=== PATIENT | male | born 1965 | race Caucasian/White ===

== ENCOUNTER → 2024-10-07 | Outpatient (CLI) | payer MEDICAID, SELFPAY ==
--- NOTE | 2024-10-07 | XR_ITS ---
Examination: Sacroiliac joints 3 views TECHNIQUE: AP OLIVAS BHARATHI sacroiliac joints 3 views Exam date and time: October 07, 2024 0858 hours INDICATIONS: Sacral pain 2 years FINDINGS: Old deformity right iliac crest Mild sclerosis about the SI joints Mild bilateral hip osteoarthritis No fracture IMPRESSION: Mild sacroiliitis
--- NOTE | 2024-10-07 | XR_ITS ---
Examination: Lumbar spine, 5 views Technique: Lumbar spine AP, lateral, coned lateral lower lumbar spine, bilateral obliques 5 views Exam date and time: October 07, 2024 0837 hours INDICATIONS: Lower back pain beginning 3 years ago. FINDINGS: Mild diffuse facet arthropathy No lumbar fracture Mild lumbar spondylosis Mild disc narrowing posteriorly L5-S1 IMPRESSION: Mild disc narrowing posteriorly L5-S1
--- NOTE | 2024-10-07 | XR_ITS ---
Examination: Bilateral knees, standing AP single view Technique: Standing AP bilateral knees, standing AP single view Exam date and time: October 07, 2024 0837 hours INDICATIONS: Bilateral knee pain 2 years FINDINGS: Minimal narrowing medial joint spaces No fracture or dislocation Meniscus calcification IMPRESSION: Minimal narrowing medial joint space
--- NOTE | 2024-10-07 | XR_ITS ---
Examination: Bilateral hands, 6 views. Technique: AP, Oblique, Lateral each hand total 6 views Date and time of exam: October 07, 2024 at 0837 hours INDICATIONS: Bilateral hand pain 2 years. FINDINGS: Mild juxta-articular bone demineralization Acute fracture or dislocation Old fracture left fifth metacarpal Bilateral mild osteoarthritis distal interphalangeal joints second through fifth digits and interphalangeal joint first digit No erosive arthritis Impression: Mild osteoarthritis as above
--- NOTE | 2024-10-07 | XR_ITS ---
Examination: AP pelvis 2 views Technique one AP pelvis hips in neutral position, AP pelvis hips abduction position Exam date and time: October 07, 2024 0857 hours INDICATIONS: Hip pain 2 years FINDINGS: Mild bilateral hip osteoarthritis Healed right hip fracture Orthopedic screw traverses proximal femoral shaft Old bony deformity superior right iliac crest No acute pelvic fracture IMPRESSION: Mild bilateral hip osteoarthritis
--- NOTE | 2024-10-07 | XR_ITS ---
Examination: Bilateral wrists 6 views Technique one AP oblique lateral each wrist total 6 views Exam date and time: October 07, 2024 0912 hours INDICATIONS: Bilateral wrist pain years FINDINGS: Mild osteopenia Mild bilateral osteoarthritis radiocarpal and first carpometacarpal joints No erosive arthritis No avascular necrosis IMPRESSION: Mild osteoarthritis radiocarpal and first carpometacarpal joint
--- NOTE | 2024-10-07 | XR_ITS ---
Examination: Ankle Bilateral, 6 views Technique: AP oblique lateral each ankle total 6 views Exam date and time: October 07, 2024 at 0909 hours INDICATIONS: Bilateral ankle pain 2 years. FINDINGS: No fracture or dislocation involving either ankle Mild bilateral osteoarthritis tibiotalar joints Ossification in the right plantar fascia 8mm plantar 10 mm posterior right calcaneal spurs 10 mm posterior left calcaneal spur Impression: Mild bilateral osteoarthritis tibiotalar joints Calcaneal spurs as above No fracture or dislocation involving either ankle
== END | disposition home or self-care (01) ==
LOC: CDIM 07:08
PROVIDERS: PCP Nurse Practitioner
DX: M46.1 Sacroiliitis, not elsewhere classified (principal); M16.0 Bilateral primary osteoarthritis of hip; M48.07 Spinal stenosis, lumbosacral region; M25.862 Other specified joint disorders, left knee; M25.861 Other specified joint disorders, right knee; M19.072 Primary osteoarthritis, left ankle and foot; M19.071 Primary osteoarthritis, right ankle and foot; M77.32 Calcaneal spur, left foot; M77.31 Calcaneal spur, right foot; M19.042 Primary osteoarthritis, left hand; M19.041 Primary osteoarthritis, right hand; M19.032 Primary osteoarthritis, left wrist; M19.031 Primary osteoarthritis, right wrist
CPT/HCPCS: 72110; 72170; 72202; 73110; 73130; 73565; 73610

== ENCOUNTER → 2024-11-07 | Outpatient (CLI) | payer MEDICAID, SELFPAY ==
--- NOTE | 2024-11-07 09:54 | XR_ITS ---
Examination: Foot bilateral, 6 views Technique: AP, oblique, lateral views each foot total 6 views Date and time of exam: November 07, 2024 1012 hours INDICATIONS: Foot joint pain 9 years FINDINGS: Mild osteopenia Advanced osteoarthritis right first metatarsophalangeal joint Mild osteoarthritis left first metatarsophalangeal joint Right foot 8mm plantar 10 mm posterior bony calcaneal spurs Ossification in the plantar fascia Left foot 10 mm posterior bony calcaneal spur IMPRESSION: Advanced osteoarthritis right first metatarsophalangeal joint Bilateral calcaneal spurs as above
== END | disposition home or self-care (01) ==
LOC: CDIM 09:40
PROVIDERS: PCP Family Medicine; Referring Provider Family Medicine; Visit Provider Family Medicine
DX: M19.072 Primary osteoarthritis, left ankle and foot (principal); M19.071 Primary osteoarthritis, right ankle and foot; M77.32 Calcaneal spur, left foot; M77.31 Calcaneal spur, right foot
CPT/HCPCS: 73630

== ENCOUNTER → 2024-11-18 | Outpatient (CLI) | payer MEDICAID, SELFPAY ==
--- NOTE | 2024-11-18 10:30 | XR_ITS ---
Examination: Abdomen sonogram, complete Date and time of exam: November 18, 2024 1114 hours INDICATIONS: Right upper abdominal pain beginning several years ago. Technique: Multiple real-time grayscale transabdominal sonographic images of the abdomen have been obtained. Findings: Normal gallbladder Normal common bile duct 0.4 cm Pancreatic head 2.4 cm Aorta not enlarged Liver 15.7 cm fatty infiltration mildly irregular contour no focal liver lesions Normal hepatopedal portal venous flow Patent IVC Right kidney 12.7 x 6.1 x 5.2 cm cortex 2.3 cm Left kidney 13.5 x 5.4 x 5.0 cm renal cortex 1.9 cm Mild bilateral renal parenchymal scar formation Spleen 10.3 cm IMPRESSION: Normal gallbladder Liver normal size fatty liver primary hepatocellular disease Mild bilateral renal parenchymal scar formation, no hydronephrosis
--- NOTE | 2024-11-18 11:00 | XR_ITS ---
Examination: Retroperitoneal ultrasound, complete Technique: Multiple high resolution grayscale images of the retroperitoneum obtained, including kidneys and bladder. Exam date and time:November 18, 2024 1123 hours INDICATIONS: Lower back pain beginning several years ago, history kidney stones FINDINGS: Right kidney 13.0 x 6.7 x 6.4 cm cortex 2.0 cm 9 mm possible calculus although no significant shadowing Left kidney 13.1 x 5.2 x 5.3 cm cortex 1.9 cm Moderate renal parenchymal scar formation No hydronephrosis No bladder mass or bladder calculi Bladder prevoid volume 64 cc unable to void Prostate volume 30 cc no prostate nodules IMPRESSION: Possible 9 mm right renal calculus Moderate bilateral renal parenchymal scar formation No hydronephrosis
== END | disposition home or self-care (01) ==
LOC: CDIM 10:41
PROVIDERS: PCP Family Medicine; Referring Provider Nurse Practitioner; Visit Provider Nurse Practitioner
DX: K76.0 Fatty (change of) liver, not elsewhere classified (principal); N28.89 Other specified disorders of kidney and ureter
CPT/HCPCS: 76700; 76770

== ENCOUNTER 2025-04-27 07:43 | Emergency (ER) | payer MEDICAID, SELFPAY ==
[2025-04-27 07:45] VITALS: BMI 36.1
[2025-04-27 07:53] VITALS: BP 145/79; PULSE 87; RESP 18; TEMP 36.8; O2SAT 98
--- NOTE | 2025-04-27 07:57 | PD.EDDENTL ---
ED Dental RME/HPI General Chief complaint: Dental/Oral/Throat Stated complaint: 3 TEETH PULLED LAST MONDAY; SEVERE PAIN Time Seen by Provider: 04/27/25 07:45 Arrival date/time: 04/27/25 07:43 60-year-old male presents to the emergency department today stating that he had 3 teeth pulled last Monday and is having pain he reports that his doctor was supposed to send Tylenol with codeine but he was unable to get the prescription as he reports the prescription did not go through. Patient requesting a shot of Toradol here and a prescription for pain medication Limitations: no limitations Related Data Home Medications ?Medication ?Instructions ?Recorded ?Confirmed tamsulosin 0.4 mg capsule (Flomax) 0.4 mg PO QDAY ##0 05/05/15 06/26/24 lisinopril 10 mg tablet 10 mg PO QDAY 10/24/19 06/26/24 Previous Rx's ?Medication ?Instructions ?Recorded acetaminophen 300 mg-codeine 30 mg 1 tab PO Q6H PRN pain #14 tabs 12/21/19 tablet (Tylenol-Codeine #3) cephalexin 500 mg capsule 500 mg PO Q8H #10 caps 06/30/24 hydrocodone 5 mg-acetaminophen 325 1 tab PO Q6H PRN pain #10 tabs 07/17/24 mg tablet hydrocodone 5 mg-acetaminophen 325 1 tab PO Q6H PRN pain #10 tabs 07/17/24 mg tablet hydrocodone 5 mg-acetaminophen 325 1 tab PO BID PRN pain #14 tabs 04/27/25 mg tablet Allergies Allergy/AdvReac Type Severity Reaction Status Date / Time ciprofloxacin (From Cipro) Allergy Severe Swelling Verified 04/27/25 07:48 of Lip/Tongue/Throat levofloxacin (From Levaquin) Allergy Severe Swelling Verified 04/27/25 07:48 of Lip/Tongue/Throat Penicillins Allergy Severe heart Verified 04/27/25 07:48 problems ibuprofen AdvReac Severe dysuria Verified 04/27/25 07:48 Review of Systems Review of Systems Systems Reviewed: All systems reviewed, normal except as documented Constitutional Constitutional: Reports system reviewed and no additional complaints, except as documented, Denies fever(s) and Denies headache(s) Eyes Eyes: Reports system reviewed and no additional complaints, except as documented and Denies blurry vision ENT Ears, Nose, Mouth, and Throat: Reports system reviewed and no additional complaints, except as documented, Reports dental pain, Denies headache(s), Denies nasal congestion and Denies nasal discharge Cardiovascular Cardiovascular: Reports system reviewed and no additional complaints, except as documented, Denies chest pain and Denies dyspnea Respiratory Respiratory: Reports system reviewed and no additional complaints, except as documented, Denies chest congestion, Denies cough and Denies dyspnea Gastrointestinal Gastrointestinal: Reports system reviewed and no additional complaints, except as documented and Denies abdominal pain Integumentary/Breasts Skin/Breast: Reports system reviewed and no additional complaints, except as documented and Denies rash Neurologic Neurologic: Reports system reviewed and no additional complaints, except as documented, Reports as per HPI and Denies headache(s) Past Medical History Past Medical History NEUROLOGIC: Negative Neurological Disorders CARDIAC: Negative Cardiac Disorders ED Exam General Limitations: Present no limitations General appearance: Present alert and in no apparent distress Head Head exam: Present atraumatic Eye Eye exam: Present normal appearance, PERRL and EOMI ENT ENT exam: Present mucous membranes moist and other (Dental pain) Neck Neck exam: Present normal inspection, full ROM and trachea midline Chest Chest inspection: Present normal inspection and symmetric chest wall rise Respiratory Respiratory exam: Present normal lung sounds bilaterally Cardiovascular Cardiovascular exam: Present regular rate, normal rhythm and normal heart sounds Abdominal Exam Abdominal exam: Present soft and normal bowel sounds Extremities Exam Extremities exam: Present normal inspection and full ROM Back Exam Back exam: Present normal inspection and full ROM Neurological Exam Neurological exam: Present alert, oriented X3 and CN II-XII intact Psychiatric Psychiatric exam: Present normal affect and normal mood Skin Skin exam: Present warm, dry, intact and normal color Course Quality Measures none Orders Category Date Time Status Ketorolac Inj [Toradol Inj] Med 04/27/25 08:08 Discontinued 30 mg .ROUTE .STK-MED ONE Ketorolac Inj [Toradol Inj] Med 04/27/25 07:57 Discontinued 30 mg IM X1 ONE Vital Signs Vital signs: Vital Signs Temperature 98.2 F 04/27/25 07:53 Pulse Rate 87 04/27/25 07:53 Respiratory Rate 18 04/27/25 07:53 Blood Pressure 145/79 H 04/27/25 07:53 Pulse Oximetry (%) 98 04/27/25 07:53 Oxygen Delivery Method Room Air 04/27/25 07:53 O2 saturation 98% room air within normal limits Dental / Oral MDM Narrative MDM Narrative:: 60-year-old male presents to the emergency department today stating that he had 3 teeth pulled last Monday and is having pain he reports that his doctor was supposed to send Tylenol with codeine but he was unable to get the prescription as he reports the prescription did not go through. Patient requesting a shot of Toradol here and a prescription for pain medication On exam patient well-appearing patient does not appear toxic in no acute distress On exam patient has swelling to his right lower gum patient reports is on antibiotics currently Patient given Toradol discharged home with [facility] Patient instructed to follow-up with dentist he does report he does have a follow-up appointment For emergent concerns patient is instructed return immediately Patient data External records reviewed:: [facility] previous records Clinical information provided by:: patient Social determinants that could affect healthcare access:: none Patient has the following chronic illnesses:: See history How is presenting disease/condition affected by chronic disease/condition?: caused by Evaluation data The following diagnostics were reviewed and interpreted by me:: other (specify) (N/A) Lab and/or radiology exams considered but not ordered:: Considered not ordered Interpretation Summary: N/A Medications / Prescriptions Medications or Prescriptions considered but not ordered:: Given Medication administrations:: Medication Administration History Discontinued Medications Ketorolac Tromethamine (Ketorolac Inj 30 Mg/Ml Vial) 30 mg IM X1 ONE Stop: 04/27/25 07:58 Last Admin: 04/27/25 08:06 Dose: 30 mg Documented By: TODD Ketorolac Tromethamine (Ketorolac Inj 30 Mg/Ml Vial) Confirm Administered Dose 30 mg .ROUTE .STK-MED ONE Stop: 04/27/25 08:09 Last Admin: 04/27/25 08:09 Dose: Not Given Documented By: TODD Non-Admin Reason: Duplicate Medication on eMAR Given Consultations Consultation(s) initiated? (list below): No Diagnosis Dental Differential Diagnosis: gingival abscess, dental caries, toothache and dental abscess Most likely diagnosis given after review of the tests above:: Dental pain Admission Indicated Admission indicated?: not indicated Admission Request Was there a request for admission?: No Disposition Plan Disposition Plan: Discharge Discharge Attestation Discharge Attestation: The patient and all family members were given an opportunity to ask questions and understood the discharge instructions. Discharge instructions specifically effects, indications for sooner follow up or return to the emergency department, and the expected course of current diagnosis. Patient condition: Stable Discharge Plan Plan Patient Disposition: HOME (Self Care) Discharge Disposition comment: Stable Prescriptions/Referrals Prescriptions/Med Rec: New hydrocodone-acetaminophen 5-325 mg tablet 1 tab PO BID MDD 10 PRN (Reason: pain) Qty: 14 0RF No Action lisinopril 10 mg tablet 10 mg PO QDAY acetaminophen-codeine [Tylenol-Codeine #3] 300-30 mg tablet 1 tab PO Q6H PRN (Reason: pain) Qty: 14 0RF tamsulosin [Flomax] 0.4 MG capsule,extended release 24hr 0.4 mg PO QDAY Qty: 0 cephalexin 500 mg capsule 500 mg PO Q8H Qty: 10 0RF hydrocodone-acetaminophen 5-325 mg tablet 1 tab PO Q6H MDD 3 PRN (Reason: pain) Qty: 10 0RF hydrocodone-acetaminophen 5-325 mg tablet 1 tab PO Q6H MDD 3 PRN (Reason: pain) Qty: 10 0RF Problem List Clinical Impression: Toothache Patient/Caregiver Discharge Instructions Education Materials: ED Dental Pain Additional Instructions: Please keep your appointment with your dentist for worsening symptoms or immediately Print Language: Ukrainian Stand Alone Forms: [facility] Award Info., Patient Portal Info Letter PA/CAR PACKER Supervising Physician PA/CAR PACKER Supervising Physician: Dr. hubbard
[2025-04-27] MEDS: KETOROLAC INJ 30 MG/ML VIAL IM (08:06)
== END 2025-04-27 08:10 | disposition home or self-care (01) ==
LOC: SERX 08:06
PROVIDERS: Emergency Provider Emergency Medicine; PCP Nurse Practitioner
DX: K08.89 Other specified disorders of teeth and supporting structures (principal)
CPT/HCPCS: 96372; 99283; J1885

== ENCOUNTER → 2025-05-01 | Outpatient (CLI) | payer MEDICAID, SELFPAY ==
--- NOTE | 2025-05-01 08:46 | XR_ITS ---
Examination: Shoulder,right, 3 views Technique: Shoulder AP internal rotation, AP external rotation, Y view shoulder, 3 views Exam date and time :May 01, 2025 0900 hours INDICATIONS: Injury to the shoulder January 10, 2025 with shoulder pain. FINDINGS: Mild osteopenia. No shoulder fracture or dislocation No AC joint separation IMPRESSION: No shoulder fracture or dislocation
--- NOTE | 2025-05-01 08:46 | XR_ITS ---
Examination:Right hip AP, lateral, AP pelvis 3 views Technique: Hip AP lateral, AP pelvis, 3 views Exam date and time:May 01, 2025 0900 hours INDICATIONS: Injury to the right hip January 10, 2025 with right hip pain. FINDINGS: Old deformity subtrochanteric region right hip No acute hip fracture No hip dislocation Mild bilateral hip osteoarthritis Bones of the pelvis intact IMPRESSION: No acute hip or pelvic fracture.
== END | disposition home or self-care (01) ==
PROVIDERS: PCP Family Medicine; Referring Provider Nurse Practitioner Family; Visit Provider Nurse Practitioner Family
DX: M25.511 Pain in right shoulder (principal); M25.551 Pain in right hip; S49.91XS Unspecified injury of right shoulder and upper arm, sequela; S79.911S Unspecified injury of right hip, sequela; X58.XXXS Exposure to other specified factors, sequela
CPT/HCPCS: 73030; 73502

== ENCOUNTER → 2025-08-06 | Outpatient (CLI) | payer MEDICAID, SELFPAY ==
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
== END | disposition home or self-care (01) ==
LOC: CDIM 11:03
PROVIDERS: PCP Nurse Practitioner; Referring Provider Nurse Practitioner; Visit Provider Nurse Practitioner
DX: R41.3 Other amnesia (principal)
CPT/HCPCS: 93880